=== PATIENT | female | born 2000 | race Caucasian/White ===

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

== ENCOUNTER → 2019-07-25 | Outpatient (CLI) | payer MEDICAID, SELFPAY ==
[2019-07-25 15:58] LABS: T4 Free Direct 0.78 ng/dL (0.76-1.46)
== END | disposition home or self-care (01) ==
LOC: BFHLAB 13:55
PROVIDERS: PCP Family Medicine; Visit Provider Family Medicine
DX: E03.9 Hypothyroidism, unspecified (principal)
CPT/HCPCS: 36415; 84439; 84443

== ENCOUNTER → 2020-01-07 17:36 | Outpatient (CLI) | payer MEDICAID, SELFPAY | PROVIDERS: PCP Family Medicine; Referring Provider Family Medicine; Visit Provider Family Medicine | DX: Z20.828 Contact with and (suspected) exposure to other viral communicable diseases (principal); R05 Cough | CPT/HCPCS: 87635; 94799; U0003 ==

== ENCOUNTER → 2020-02-12 | Outpatient (CLI) | payer MEDICAID, SELFPAY ==
[2020-02-12 12:28] LABS: Absolute Lymphocyte Count 3.59 X10^3/uL (0.83-4.51); Absolute Neutrophil Count 6.9 X10^3/uL (2.0-7.7); Basophil# 0.03 X10^3/uL; Basophil% 0.3 % (0-1); Eosinophil# 0.16 X10^3/uL; Eosinophils% 1.4 % (0-5); Hematocrit 35.8 % (37-47); Hemoglobin 10.6 g/dL (12.0-15.0); Lymphocyte # 3.59 X10^3/ul (4.0); Mean Corp Hgb Conc 29.6 g/dL (32-36); Mean Corpuscular Hgb 22.9 pg (27.0-32.0); Mean Corpuscular Volume 77.5 fL (81-99); Mean Platelet Vol. 10.4 fl (6.2-12.0); Monocyte# 0.49 X10^3/uL; Monocyte% 4.4 % (0-10); NRBC Flagged by Analyzer 0 % (0-5); Neutrophil # 6.89 X10^3/uL (2.7-7.7); Neutrophil % 61.5 % (47-70); Platelet Count 419 K/mm3 (150-450); RBC Distribution Width CV 15.9 % (11.6-14.6); RBC Distribution Width SD 43.9 fl (35.1-43.9); Red Blood Count 4.62 M/mm3 (4.2-5.4); White Blood Count 11.2 K/mm3 (4.4-11.0)
[2020-02-12 13:43] LABS: ALB/GLOB Ratio 0.7 RATIO (0.9-2.4); AST(SGOT) 25 U/L (15-37); Alanine Aminotransfer ALT/SGPT 37 U/L (13-56); Albumin, Serum 2.8 g/dL (3.2-5.0); Alkaline Phosphatase 112 U/L (45-117); Anion Gap 6 (5-15); BUN 8 mg/dL (7-18); BUN/Creat Ratio 13.2 RATIO (10-20); Calcium,Total 8.9 mg/dL (8.5-10.1); Chloride 105 mmol/L (98-107); Creatinine, Serum 0.61 mg/dL (0.55-1.02); EST Glomerular Filtration Rate 133 mL/min (>60); Est Glom Filt Rate - Afr Amer 161 mL/min (>60); Free T3 3.4 pg/mL (2.18-3.98); Globulin 4.2 g/dL (2.2-4.2); Glucose 80 mg/dL (74-106); Potassium 3.8 mmol/L (3.5-5.1); Sodium Level 140 mmol/L (136-145); Thyroid Stim Hormone (TSH) 3.87 uIU/mL (0.358-3.74)
== END | disposition home or self-care (01) ==
LOC: LAB.FUTURE 09:30
PROVIDERS: PCP Family Medicine; Visit Provider Family Medicine
DX: E03.8 Other specified hypothyroidism (principal); E06.3 Autoimmune thyroiditis; D64.9 Anemia, unspecified; Z51.81 Encounter for therapeutic drug level monitoring
CPT/HCPCS: 36415; 80053; 84439; 84443; 84481; 85025

== ENCOUNTER 2020-09-03 22:31 | Emergency (ER) | payer MEDICAID, SELFPAY ==
[2020-09-03 22:31] VITALS: BP 186/112; PULSE 100; RESP 16; TEMP 36.4; O2SAT 97; BMI 64.7
--- NOTE | 2020-09-03 22:42 | CT_ITS ---
STUDY: CT BRAIN WITHOUT CONTRAST REASON FOR EXAM: Female, 20 years old. Pain RADIATION DOSAGE (If Supplied By Facility): CTDIvol = ( 44.99 ) mGy, DLP = ( 812.98 ) mGycm TECHNIQUE: Transaxial CT imaging of the brain was performed without administration of intravenous contrast material. Individualized dose optimization techniques were used for this CT. COMPARISON: No relevant priors. FINDINGS: Normal soft tissue structures. Normal calvarium. Normal size ventricles and extra-axial spaces for the patient''s age. Normal white matter tracts of the cerebral hemispheres. Normal basal ganglia and thalami. Normal brainstem. Normal cerebellum. There is no intracranial hemorrhage. There are no findings of an acute ischemic infarction. Normal visualized paranasal sinuses. CT/Brain/Head without Contrast IMPRESSION: Normal unenhanced CT scan of the brain. Electronically Signed: Daren Salguero DO at 23:20 EDT Tel , Service support ,
--- NOTE | 2020-09-03 22:42 | ED.VIS.GEN ---
History of Present Illness Chief Complaint: Headache Informant: Patient Narrative: Stated she woke up with a migraine headache right sided throbbing aching with photophobia and nausea. She has getting migraines twice a week for the last 2 and half months. She is unsure why they have come on. She has tried Fioricet today given to her by her family doctor with minimal relief. They had been helping in the past. No fevers or chills. No neck pain. No visual difficulties. Severity is moderate. Past Medical History - Allergies and Home Meds Allergies/Adverse Reactions: Allergies No Known Allergies Allergy (Verified 09/03/20 22:32) Primary Care Physician: Vivi Wick DO [Primary Care Provider] - Prior records reviewed: Yes Past Medical History: - - migraine headache Surgical History: tonsillectomy Lives: With Family Smoking Status: Never smoker Alcohol: None Drugs: None Review of Systems General: Denies: Chills, Fever, Sweats Eyes: Denies: Visual changes - bilaterally, Diplopia ENT: Denies: Rhinorrhea, Sore throat Cardiovascular: Denies: Chest pain, Palpitations Respiratory: Denies: Dyspnea, Cough, Dyspnea on exertion Gastrointestinal: Denies: Abdominal pain, Nausea, Vomiting, Diarrhea, Melena, Hematochezia Genitourinary: Denies: Dysuria, Hematuria, Frequency Musculoskeletal: Denies: Back pain, Extremity Pain Skin: Denies: Rash, Wounds Neurological: Reports: Headache. Denies: Weakness, Numbness Physical Exam Vital Signs/Narrative: Vital Signs Temp Pulse Resp BP Pulse Ox 09/03/20 22:31 97.6 F L 100 16 186/112 H 97 General: Well nourished, Well developed, No Acute Distress Head: Normocephalic, Atraumatic Eyes: Perrl, EOMI ENT: Moist mucous membranes, No rhinorrhea Neck: Supple, Nontender Cardiovascular: Regular rate, Regular rhythm, No murmurs Respiratory: No distress, CTA bilaterally, Chest nontender Abdomen: Soft, Nontender, Nondistended, Normal bowel sounds Back: Nontender, Normal Inspection Extremities: Nontender, No edema Skin: Normal color, No rash Neurological: Alert, Oriented x3, Cranial nerves II-XII grossly intact, Normal Strength, Normal Sensation Psychological: Normal affect, Normal Mood Diagnostic/Tx/Re-eval - Medical Decision Making Patient resting comfortably. CT of the head will be obtained. Given Toradol Compazine Benadryl for her migraine headache. CT head shows nothing acute. No masses. On reevaluation headache is resolved. She will follow-up as an outpatient with her family doctor and may need a neurology referral. She will continue her outpatient medications for her migraines ED Disposition - Plan for ED Patient: Disposition: Home or Assisted Living Diagnosis: Migraine headache Instructions: ED, Migraine (Classical) Referrals: Vivi Wick DO [Primary Care Provider] -
[2020-09-03] MEDS: Ketorolac 15 MG/ML Vial IV (23:06)
[2020-09-03] MEDS: 0.9% Normal Saline 1,000 ML 999 ML IV (23:06)
[2020-09-03] MEDS: DiphenhydrAMINE 50 MG/ML Syringe 25 MG IV (23:06)
[2020-09-03] MEDS: proCHLORPERazine 10 MG/2 ML Vial IV (23:06)
--- NOTE | 2020-09-03 23:47 | ED.RN ---
Patient states she no longer has pain and would like to go home as her dad is in the parking lot and wants to head home
[2020-09-03 23:50] VITALS: BP 134/80; PULSE 80; RESP 18; TEMP 36.6; O2SAT 98
== END 2020-09-03 23:51 | disposition home or self-care (01) ==
PROVIDERS: Emergency Provider Emergency Medicine; PCP Family Medicine
DX: G43.909 Migraine, unspecified, not intractable, without status migrainosus (principal)
CPT/HCPCS: 70450; 96361; 96374; 96375; 99283; J7030; A4216

== ENCOUNTER → 2020-12-20 13:06 | Outpatient (CLI) | payer MEDICAID, SELFPAY ==
[2020-11-04 11:02] VITALS: BMI 62.9
--- NOTE | 2020-12-20 13:07 | MRI_ITS ---
STUDY: MRI BRAIN WITH AND WITHOUT CONTRAST REASON FOR EXAM: Female, 20 years old. Migraine Headaches, increased frequency TECHNIQUE: Standardized multiplanar fat and water weighted pulse sequences were obtained. IV Yes YES was administered for the contrast portion of the examination. COMPARISON: CT of the brain 09/03/2020 FINDINGS: Mild ventricular asymmetry likely normal variant.. There is a solitary nonspecific white matter lesion in the left parietal lobe without mass effect or restricted diffusion which in isolation is of uncertain clinical significance Normal bilateral basal ganglia. Normal thalami. There is no extra-axial fluid accumulation. Normal flow voids within the major intracranial circulation suggesting patency by spin echo criteria. Normal venous enhancement. There is no enhancing intra-axial or extra-axial abnormality. Normal sella turcica, pituitary gland, infundibular stalk, optic chiasm and hypothalamus. Normal tectal plate and pineal gland. Normal midbrain, sotero and medulla. Normal cerebellum. Normal basal cisterns. Normal bilateral temporal bones. Normal bilateral internal auditory canals. No demonstrated orbital abnormality, within the constraints of a routine brain study. Small mucous retention cyst in the right maxillary sinus.. Normal calvarium and skull base. Normal visualized soft tissue structures. Normal visualized upper cervical spine. MRI/Brain W/WO Contrast IMPRESSION: Minimal nonspecific white matter changes. No evidence for significant white matter disease or evidence for acute infarct. Otherwise normal study of the brain with and without contrast. Mild right maxillary sinus disease likely chronic Electronically Signed: George Allen MD at 16:31 EDT , Service support ,
== END ==
PROVIDERS: PCP Family Medicine; Referring Provider Psychiatry & Neurology Neurology; Visit Provider Psychiatry & Neurology Neurology
DX: G43.009 Migraine without aura, not intractable, without status migrainosus (principal)
CPT/HCPCS: 70553; A9575

== ENCOUNTER → 2021-02-23 | Outpatient (CLI) | payer MEDICAID, SELFPAY | END | disposition home or self-care (01) | LOC: LABSPEC 02-24 07:24 | PROVIDERS: PCP Family Medicine; Visit Provider Family Medicine | DX: Z20.822 Contact with and (suspected) exposure to COVID-19 (principal) | CPT/HCPCS: 87635; U0005; U0003 ==

== ENCOUNTER → 2021-10-24 | Outpatient (CLI) | payer MEDICAID, SELFPAY ==
--- NOTE | 2021-10-24 12:56 | US_ITS ---
STUDY: ULTRASOUND OF THE FEMALE PELVIS - COMPLETE REASON FOR EXAM: Female, 21 years old. AUB TECHNIQUE: Endovaginal. Transvaginal US was obtained to better visualized the ovaries. COMPARISON: None. FINDINGS: The uterus is anteverted and is in a midline position. The uterus measures 8.4 x 5.5 cm. Normal uterine cervix. The endometrium measures 5 mm in thickness, and is hyperechoic. There is no demonstrated endometrial mass. There is no demonstrated myometrial mass. I.U.D. - The patient does not have an I.U.D. The right ovary is visualized. The right ovary measures 2.5 cm. There is no right ovarian cyst or ovarian mass. There is no visualized right adnexal mass or complex lesion. There is normal arterial and normal venous vascularity. The left ovary is visualized. The left ovary measures 2.4 cm. There is no left ovarian cyst or ovarian mass. There is no visualized left adnexal mass or complex lesion. There is normal arterial and normal venous vascularity. There is no fluid in the cul-de-sac. Urinary bladder volume of 221 cc. US/Transvaginal Non- IMPRESSION: There are no acute findings. Electronically Signed: Bryce Centeno MD at 20:41 EDT ,
--- NOTE | 2021-10-24 12:56 | US_ITS ---
STUDY: ULTRASOUND OF THE FEMALE PELVIS - COMPLETE REASON FOR EXAM: Female, 21 years old. AUB TECHNIQUE: Endovaginal. Transvaginal US was obtained to better visualized the ovaries. COMPARISON: None. FINDINGS: The uterus is anteverted and is in a midline position. The uterus measures 8.4 x 5.5 cm. Normal uterine cervix. The endometrium measures 5 mm in thickness, and is hyperechoic. There is no demonstrated endometrial mass. There is no demonstrated myometrial mass. I.U.D. - The patient does not have an I.U.D. The right ovary is visualized. The right ovary measures 2.5 cm. There is no right ovarian cyst or ovarian mass. There is no visualized right adnexal mass or complex lesion. There is normal arterial and normal venous vascularity. The left ovary is visualized. The left ovary measures 2.4 cm. There is no left ovarian cyst or ovarian mass. There is no visualized left adnexal mass or complex lesion. There is normal arterial and normal venous vascularity. There is no fluid in the cul-de-sac. Urinary bladder volume of 221 cc. US/Pelvic (Non ) IMPRESSION: There are no acute findings. Electronically Signed: Bryce Centeno MD at 20:41 EDT ,
== END | disposition home or self-care (01) ==
LOC: US 12:55
PROVIDERS: PCP Family Medicine; Referring Provider Family Medicine; Visit Provider Family Medicine
DX: N92.0 Excessive and frequent menstruation with regular cycle (principal)
CPT/HCPCS: 76830; 76856

== ENCOUNTER → 2021-12-21 | Outpatient (CLI) | payer MEDICAID, SELFPAY ==
[2021-12-21 14:46] LABS: Absolute Lymphocyte Count 4.37 X10^3/uL (0.83-4.51); Absolute Neutrophil Count 8.7 X10^3/uL (2.0-7.7); Basophil# 0.02 X10^3/uL; Basophil% 0.1 % (0-1); Eosinophil# 0.21 X10^3/uL; Eosinophils% 1.5 % (0-5); Hematocrit 36.9 % (37-47); Lymphocyte # 4.37 X10^3/ul (0.83-4.51); Lymphocyte % 31.6 % (19-41); Mean Corp Hgb Conc 29.8 g/dL (32-36); Mean Corpuscular Volume 77.2 fL (81-99); Mean Platelet Vol. 9.9 fl (6.2-12.0); Monocyte# 0.53 X10^3/uL; Monocyte% 3.8 % (0-10); NRBC Flagged by Analyzer 0 % (0-5); Neutrophil # 8.67 X10^3/uL (2.7-7.7); Neutrophil % 62.6 % (47-70); POSITIVE MORPHOLOGY YES; Platelet Count 548 K/mm3 (150-450); RBC Distribution Width CV 15.1 % (11.6-14.6); RBC Distribution Width SD 41.2 fl (35.1-43.9); Red Blood Count 4.78 M/mm3 (4.2-5.4); White Blood Count 13.9 K/mm3 (4.4-11.0)
[2021-12-21 14:49] LABS: Differential Indicated SCAN CRITERIA MET
[2021-12-21 15:10] LABS: Differential Comment SCANNED; Reactive Lymphocyte 1+
[2021-12-23 17:07] LABS: von Willebrand Factor Activity 95 % (50-200)
[2021-12-23 22:06] LABS: Factor VIII Activity 247 % (56-140); VWD Studies Interp Report Note (.); von Willebrand Factor (vWF) Ag 202 % (50-200)
== END | disposition home or self-care (01) ==
LOC: PAVLAB 14:26
PROVIDERS: PCP Family Medicine; Referring Provider Nurse Practitioner Women's Health; Visit Provider Nurse Practitioner Women's Health
DX: N92.0 Excessive and frequent menstruation with regular cycle (principal)
CPT/HCPCS: 36415; 85025; 85240; 85245; 85246

== ENCOUNTER 2022-02-28 11:35 | Day surgery (SDC) | payer MEDICAID, SELFPAY ==
[2022-02-28] VITALS (7 sets, daily range): BP systolic 150–171; BP diastolic 70–88; PULSE 71–110; RESP 16; TEMP 36.4–36.9; O2SAT 92–98; BMI 58.4
--- NOTE | 2022-02-28 11:17 | PCM.HP.BLA ---
History and Physical Date of Admission: 02/28/22 Intake Vital Signs ? 01/18/2211:57 01/18/2211:58 Height 5 ft 1.5 in 5 ft 1.8 in Weight: 315 lb ? BMI 58.5 ? BP 148/73 H ? Intake Visit Reasons:?EMB/IUD insertion under anesth Chief Complaint: EMB Environmental Emergencies Planner Required: No Is patient in pain?: No Allergies amoxicillin [From Augmentin] Adverse Reaction (Intermediate, Verified 12/21/21 13:59) Nauseaclavulanic acid [From Augmentin] Adverse Reaction (Intermediate, Verified 12/21/21 13:59) Nausea Medications mrpivinumb-btkaanstlmliy-bnoboiti 50 mg-325 mg-40 mg capsule 1 tablet PO 4X/DAY PRN PRN MIGRAINE 09/03/20 [History Confirmed 01/18/22] omeprazole 40 mg capsule,delayed release 40 mg PO DAILY 09/03/20 [History Confirmed 01/18/22] atenolol 50 mg tablet 50 mg PO DAILY 04/05/21 [History Confirmed 01/18/22] buspirone 5 mg tablet 5 mg PO BID 09/05/21 [History Confirmed 01/18/22] fluoxetine 40 mg capsule 40 mg PO DAILY 09/05/21 [History Confirmed 01/18/22] sumatriptan succinate 100 mg tablet See Rx Instructions .Route .COMPLEX #9 tabs 09/05/21 [Rx Confirmed 01/18/22] topiramate 50 mg tablet 50 mg PO BID #60 tabs 09/05/21 [Rx Confirmed 01/18/22] aripiprazole 5 mg tablet (Abilify) 5 mg PO DAILY 12/21/21 [History Confirmed 01/18/22] ferrous sulfate 325 mg (65 mg iron) tablet 325 mg PO DAILY 12/21/21 [History Confirmed 01/18/22] furosemide 20 mg tablet 20 mg PO DAILY PRN 12/21/21 [History Confirmed 01/18/22] levothyroxine 150 mcg capsule 150 mcg PO DAILY 12/21/21 [History Confirmed 01/18/22] norgestimate 0.25 mg-ethinyl estradiol 35 mcg tablet (Nymyo) 1 tab PO DAILY 12/21/21 [History Confirmed 01/18/22] sodium chloride 0.65 % nasal spray aerosol (Saline Nasal) 1 spray intranasal ONCE 12/21/21 [History Confirmed 01/18/22] tizanidine 2 mg capsule 2 mg PO Q8H PRN 12/21/21 [History Confirmed 01/18/22] topiramate 50 mg tablet 50 mg PO DAILY 12/21/21 [History Confirmed 01/18/22] megestrol 20 mg tablet 20 mg PO DAILY #30 tabs 01/18/22 [Rx Confirmed 01/18/22] Is last menstrual period known: No Post menopausal: No Patient : No : No PFSH Medical History? Anxiety Valentin's thyroiditis History of childhood obesity HTN (hypertension) Migraine headache without aura Surgical History? Hx of tonsillectomy Family History? Mother Hypothyroidism AnemiaFather Anxiety Hypertension Fibromyalgia Rheumatoid arthritis Social History? household members:? family current occupational status:? student current occupation:? [employer] Smoking Status:? Never smoker Electronic Cigarette Use:? not used second hand exposure:? Yes (Parents smoked in the house) alcohol intake:? current alcohol intake frequency: holidays/special occasions only substance use type:? does not use what type of physical activity do you participate in:? none seatbelt use:? always do you feel safe at home:? Yes additional social history:? single HPI EMB/IUD insertion under anesth Details: KELLE STEWART is a 21 year old who presents for discussion about abnormal bleeding and abnormal blood levels of Factor VIII. She was seen by Honey Rodriguez CNP and was sent to myself for opinion on emb and placement of IUD. Kelle is currently using a combination ocp to control her bleeding. She is obese, hypothyroid, hypertensive, and suffers with severe anxiety and depression. She denies history of blood clots in the past. A recent blood test showed elevation and the VWD antigen, but normal VWD level, and elevated Factor VIII level. platelets were also noted to be elevated. Pregancy History ? ? ? 0 ? Elective abortions ? Hx Para ? Spontaneous abortions ? Hx # Term Pregnancies ? Ectopic pregnancies ? Hx # Pregnancies ? Multiple births ? # of living children ? ROS Const ROS Unobtainable: All systems reviewed & are unremarkable except as noted in H Resp Resp: Reports system reviewed and no additional complaints, except as documented; Denies cough GI GI: Reports as per HPI Psych Psych: Reports system reviewed and no additional complaints, except as documented Exam Const General: cooperative, healthy appearing, comfortable and no acute distress Resp Effort & Inspection: normal respiratory effort Skin General: no rashes or lesions noted Psych Appearance: grossly normal Speech and Movement: speech and movement normal Coding Level of Care Code Off vis,est,level 4 Diagnoses Elevated factor VIII level? R79.1 Menorrhagia with regular cycle? N92.0 Obesity? E66.01; Z68.43 ? ? ? Obesity type: due to excess calories ? ? ? Obesity classification: adult class 3 (BMI >= 40) ? ? ? Serious obesity comorbidity presence: with serious comorbidity ? ? ? Body mass index: BMI 50.0-59.9 Assessment and Plan Assessment and Plan (1) Elevated factor VIII level: ?Status:?Acute ?Comment: consulting hemonc (2) Menorrhagia with regular cycle: ?Status:?Acute ?Comment: Normal US([id number]). Failed apri and sprintec.labs pending (3) Obesity: ?Status:?Acute ?Qualifiers: ?Obesity type:?due to excess calories??Obesity classification:?adult class 3 (BMI >= 40)??Serious obesity comorbidity presence:?with serious comorbidity??Body mass index:?BMI 50.0-59.9? Qualified Code(s):?E66.01 - Morbid (severe) obesity due to excess calories; Z68.43 - Body mass index [BMI] 50.0-59.9, adult ? ? ? Medications: New megestrol 20 mg? PO DAILY 30 tabs 0RF ? ? Plan The patient agrees to placement of a progesterone IUD to avoid systemic absorption of progesterone and to avoid estrogen that may be causing her factor VIII level to be elevated or could possibly cause future blood clots. She would like to proceed with placement in the operating room under sedation. I would also recommend pap and possible endometrial biopsy at the same time since estrogen may be the cause of the elevated factor VIII, the level may need to be repeated when taken off the medication, however I would like for her to get a second opinion from a citrus fruit colorer to help rule out hereditary elevation in factor VIII.? Plan for hysteroscopy dilation and curettage, placement of mirena IUD Discussed risks of surgery including risks of anesthesia, bleeding, infection, uterine perforation, possible laparoscopy if this happens due to risk of injury to bowel, bladder or vasculature. UPDATE- I have seen the patient and performed any clinically relevant updates to the history and physical exam. Mitzi Villareal, DO
[2022-02-28 12:10] LABS: Internal QC Validated? YES +Cl - CLEAR BKGD; Pregnancy, Urine Negative Negative
[2022-02-28] MEDS: Lactated Ringers 1,000 ML 100 ML IV (12:21)
[2022-02-28] MEDS: Lidocaine 1% (20 ml mdv) 20 ML Vial (12:35)
--- NOTE | 2022-02-28 13:10 | EMB_PTH ---
PATIENT: BEN STEWART LOC: [facility] – [place] U#:[id number] AGE/SX: ROOM: RE02/28/[address]: Dr. Mitzi Villareal DO : 2000 BED: DIS: 02/28/2022 SPEC #: [id number] RECD: 02/28/22 14:13 STATUS: KHOI REDDY #: [id number] NELA: 02/28/22 13:[address]: Mitzi Villareal DEPT: SURGICAL PATHOLOGY RECD BY: Norman Warner ENTERED: 03/01/22 08:01 SP TYPE: ENDOM BX/C OTHR DR: Dr. Vivi Wick DO Tissues: Endometrium, NOS Procedures: Surgery Specimen Level IV HEADER OPERATION: Hysteroscopy, dilation and curettage, IUD insertion, Pap test PRE-OP DIAGNOSIS: Elevated factor VIII level, menorrhagia TISSUE SUBMITTED: Endometrial curettings MICROSCOPIC DIAGNOSIS Endometrial curettings: Secretory endometrium. JULIAN:bonilla 03/02/2022 MICROSCOPIC DESCRIPTION Slides are reviewed. GROSS DESCRIPTION Received in fixative is one container labeled with the patient's name and designated endometrial curettings. The specimen consists of multiple irregular fragments of morales-pink to hemorrhagic mucoid tissue that in aggregate measure 1.5 x 1 x 0.2 cm. The specimen is totally submitted in one cassette. / JULIAN:bonilla 03/01/2022 TC:4 CPT: 78050
--- NOTE | 2022-02-28 13:48 | PCM.OP.BLANK ---
Operative Report Date of Procedure: 02/28/22 preoperative diagnosis: abnormal uterine bleeding, unable to tolerate in office exam, morbid obesity Postoperative diagnosis:abnormal uterine bleeding, unable to tolerate in office exam, morbid obesity Surgeon: Dr. Mitzi Villareal, Procedure: hysteroscopy dilation and curettage, placement of Liletta intrauterine device, pap under anesthesia EBL: minimal urine output: 10cc findings: atrophic appearing uterus specimens removed: endometrial curettings Details of the procedure: Patient was prepped and draped in a normal sterile fashion under MAC anesthesia. A weighted speculum was placed in the vagina and a pap was collected. The anterior lip of the cervix was grasped with a single-tooth tenaculum. A paracervical block was placed with 1% lidocaine. Cervix was progressively dilated to allow passage of a 5 mm hysteroscope. The lining was fully visualized and noted to have an atrophic appearing lining . Uterine sounded to 10 cm. Curettage was performed and specimen was sent to pathology. The liletta IUD was inserted into the uterus and the strings were trimmed 2 cm from the cervix. All instruments were removed from the vagina and excellent hemostasis was noted. Patient was awoken and taken to recovery in stable condition. Multi Select Codes Urinary/Genital Urinary/Genital CPT Codes: 77812 Hysteroscopy,EMC, Polypectomy and Other Procedure See Report (pap and placement of intrauterine device )
--- NOTE | 2022-02-28 13:52 | DCINST_ITS ---
Discharge Instructions Diet Discharge Diet: No restrictions Activity Discharge Activity: Return to Normal Activity, May Shower and May Take a Tub Bath (after 1 week) May resume sexual activity in: 1-2 weeks Weight Bearing Status: Weight bearing as tolerated Lifting Restrictions: none Dressing / Incision Call your doctor if you observe: Fever of 101 or Higher, Using more than 1 pad per hour, Shortness of breath and Uncontrolled pain Follow Up Care Please Follow Up With: Mitzi Villareal DO When: Call [phone] to schedule appointment. Test Results: Test results from this visit will be discussed in further detail at your follow- up appointment, if applicable. Discharge Plan Admission Primary Reason for Your Visit: dilation and curettage, placement of Intrauterine device Attending Provider: Mitzi Villareal Primary Care Provider: Vivi Wick Discharge Orders/Prescriptions Prescriptions: New ibuprofen 800 mg tablet 800 mg PO Q8H PRN (Reason: pain) 7 Days Qty: 30 0RF Continued atenolol 50 mg tablet 50 mg PO DAILY fluoxetine 40 mg capsule 40 mg PO DAILY aripiprazole [Abilify] 5 mg tablet 5 mg PO BID ferrous sulfate 325 mg (65 mg iron) tablet 325 mg PO DAILY furosemide 20 mg tablet 20 mg PO DAILY PRN (Reason: WATER RETENTION) levothyroxine 150 mcg capsule 150 mcg PO DAILY topiramate 50 mg tablet 50 mg PO DAILY tizanidine 2 mg capsule 2 mg PO Q8H PRN (Reason: Spasms) Saline Nasal 0.65 % aerosol,spray 1 spray intranasal PRN PRN (Reason: Nasal Congestion) mbzzsdwdfo-mfymdzkujjxml-xzjn 1 EACH capsule 1 tablet PO 4X/DAY PRN PRN (Reason: MIGRAINE) omeprazole 40 MG capsule,delayed release(DR/EC) 40 mg PO DAILY buspirone 5 mg tablet 5 mg PO BID sumatriptan succinate 100 mg tablet 100 mg PO PRN PRN (Reason: Migraine Headache) Discontinued megestrol 20 mg tablet 20 mg PO DAILY Qty: 30 0RF Referrals / Follow Up: Vivi Wick DO [Primary Care Provider] - Disposition Disposition (needs filled in before D/C Order can be placed): Home, Self Care
[2022-02-28] MEDS: HYDROcodone Bitartrate/Apap 5/325 Tablet PO (14:42)
== END 2022-02-28 14:51 | disposition home or self-care (01) ==
LOC: SDC 11:35 → AC 11:36
PROVIDERS: PCP Family Medicine; Referring Provider Obstetrics & Gynecology; Visit Provider Obstetrics & Gynecology
PROC: 0UDB8ZZ Extraction of Endometrium, Via Natural or Artificial Opening Endoscopic (ICD-10-PCS; CPT 58558; principal; 2022-02-28 13:00)
DX: N93.9 Abnormal uterine and vaginal bleeding, unspecified (principal); D66 Hereditary factor VIII deficiency; Z68.43 Body mass index [BMI] 50.0-59.9, adult; E66.01 Morbid (severe) obesity due to excess calories; Z30.430 Encounter for insertion of intrauterine contraceptive device; N85.8 Other specified noninflammatory disorders of uterus; I10 Essential (primary) hypertension; E06.3 Autoimmune thyroiditis; F32.A Depression, unspecified; F41.9 Anxiety disorder, unspecified; Z79.899 Other long term (current) drug therapy; D64.9 Anemia, unspecified; K21.9 Gastro-esophageal reflux disease without esophagitis
CPT/HCPCS: 58558; 58300; 81025; 87491; 87591; 88175; 88305; J7120; G0145

== ENCOUNTER → 2022-04-24 | Outpatient (CLI) | payer MEDICAID, SELFPAY ==
--- NOTE | 2022-04-24 09:46 | US_ITS ---
INDICATION: lost IUD strings EXAMINATION: Ultrasound US Transvaginal Non-OB TECHNIQUE: Transvaginal (for optimal evaluation of the adnexa) pelvic ultrasound was performed. Grayscale, spectral waveform, and color flow Doppler evaluation of the adnexa. COMPARISON: Pelvic ultrasound from 10/24/2021 FINDINGS: UTERUS: Anteverted. The uterus measures 9.1 x 4.9 x 4.6 cm. There is no uterine mass. The endometrial stripe measures 7 mm in AP diameter which is within normal limits. The intrauterine device appears to be in appropriate position in the fundal endometrium. The IUD strings are not visualized. RIGHT OVARY: Not visualized. LEFT OVARY: Not visualized. FREE FLUID: None. US/Transvaginal Non- IMPRESSION: Appropriate positioning of the IUD in the fundal endometrium. However, the IUD strings are not visualized on ultrasound. Electronically Signed: Derrell Laura, at 11:23 EST ,
== END | disposition home or self-care (01) ==
LOC: US 09:46
PROVIDERS: PCP Family Medicine; Referring Provider Obstetrics & Gynecology; Visit Provider Obstetrics & Gynecology
DX: T83.32XA Displacement of intrauterine contraceptive device, initial encounter (principal); Z97.5 Presence of (intrauterine) contraceptive device
CPT/HCPCS: 76830

== ENCOUNTER → 2022-06-22 | Outpatient (CLI) | payer MEDICAID, SELFPAY | END | disposition home or self-care (01) | PROVIDERS: PCP Family Medicine; Visit Provider Family Medicine | DX: Z02.83 Encounter for blood-alcohol and blood-drug test (principal) | CPT/HCPCS: 82570 ==

== ENCOUNTER → 2022-10-16 | Outpatient (CLI) | payer MEDICAID, SELFPAY ==
[2022-10-16 18:32] LABS: Free T3 2.8 pg/mL (2.18-3.98); T4 Free Direct 0.87 ng/dL (0.76-1.46); Thyroid Stim Hormone (TSH) 8.57 uIU/mL (0.358-3.74)
== END | disposition home or self-care (01) ==
LOC: BFHLAB 16:16
PROVIDERS: PCP Family Medicine; Referring Provider Family Medicine; Visit Provider Family Medicine
DX: E03.9 Hypothyroidism, unspecified (principal)
CPT/HCPCS: 36415; 84439; 84443; 84481

== ENCOUNTER → 2022-12-11 | Outpatient (CLI) | payer MEDICAID, SELFPAY ==
[2022-12-11 15:35] LABS: Absolute Lymphocyte Count 4.08 X10^3/uL (0.83-4.51); Absolute Neutrophil Count 7.9 X10^3/uL (2.0-7.7); Basophil# 0.04 X10^3/uL; Basophil% 0.3 % (0-1); Eosinophil# 0.26 X10^3/uL; Hematocrit 36.9 % (37-47); Hemoglobin 11.3 g/dL (12.0-15.0); Lymphocyte # 4.08 X10^3/ul (0.83-4.51); Lymphocyte % 31.6 % (19-41); Mean Corp Hgb Conc 30.6 g/dL (32-36); Mean Corpuscular Hgb 24.9 pg (27.0-32.0); Mean Corpuscular Volume 81.5 fL (81-99); Mean Platelet Vol. 10.4 fl (6.2-12.0); Monocyte# 0.61 X10^3/uL; Monocyte% 4.7 % (0-10); NRBC Flagged by Analyzer 0 % (0-5); Neutrophil # 7.87 X10^3/uL (2.7-7.7); Platelet Count 381 K/mm3 (150-450); RBC Distribution Width CV 16.3 % (11.6-14.6); RBC Distribution Width SD 48.5 fl (35.1-43.9); Red Blood Count 4.53 M/mm3 (4.2-5.4); White Blood Count 12.9 K/mm3 (4.4-11.0)
[2022-12-11 16:32] LABS: ALB/GLOB Ratio 0.7 RATIO (0.9-2.4); AST(SGOT) 16 U/L (15-37); Alanine Aminotransfer ALT/SGPT 31 U/L (13-56); Albumin, Serum 2.8 g/dL (3.2-5.0); Alkaline Phosphatase 117 U/L (45-117); Anion Gap 5 (5-15); BUN 9 mg/dL (7-18); BUN/Creat Ratio 14.4 RATIO (10-20); Calcium,Total 8.9 mg/dL (8.5-10.1); Chloride 107 mmol/L (98-107); Creatinine, Serum 0.62 mg/dL (0.55-1.02); EST Glomerular Filtration Rate 126 mL/min (>60); Est Glom Filt Rate - Afr Amer 152 mL/min (>60); Globulin 4.2 g/dL (2.2-4.2); Glucose 71 mg/dL (74-106); Magnesium 2.8 mg/dL (1.6-2.6); Potassium 3.7 mmol/L (3.5-5.1); Sodium Level 139 mmol/L (136-145); T4 Free Direct 0.82 ng/dL (0.76-1.46); Thyroid Stim Hormone (TSH) 9.78 uIU/mL (0.358-3.74)
== END | disposition home or self-care (01) ==
LOC: BFHLAB 13:09
PROVIDERS: PCP Family Medicine; Referring Provider Family Medicine; Visit Provider Family Medicine
DX: E03.9 Hypothyroidism, unspecified (principal); R00.0 Tachycardia, unspecified; Z51.81 Encounter for therapeutic drug level monitoring
CPT/HCPCS: 36415; 80053; 83735; 84439; 84443; 84481; 85025

== ENCOUNTER → 2023-04-16 | Outpatient (CLI) | payer MEDICAID, SELFPAY ==
[2023-04-16 18:41] LABS: T4 Free Direct 0.87 ng/dL (0.76-1.46); Thyroid Stim Hormone (TSH) 5.35 uIU/mL (0.358-3.74)
== END | disposition home or self-care (01) ==
LOC: BFHLAB 16:07
PROVIDERS: PCP Family Medicine; Visit Provider Family Medicine
DX: E03.9 Hypothyroidism, unspecified (principal)
CPT/HCPCS: 36415; 84439; 84443; 84481

== ENCOUNTER → 2024-04-21 | Outpatient (CLI) | payer MEDICAID, SELFPAY ==
[2024-04-21 12:52] LABS: ALB/GLOB Ratio 0.7 RATIO (0.9-2.4); AST(SGOT) 21 U/L (15-37); Alanine Aminotransfer ALT/SGPT 41 U/L (13-56); Albumin, Serum 3.1 g/dL (3.2-5.0); Alkaline Phosphatase 105 U/L (45-117); Anion Gap 3 (5-15); BUN 10 mg/dL (7-18); BUN/Creat Ratio 13.8 RATIO (10-20); Calcium,Total 9.3 mg/dL (8.5-10.1); Chloride 108 mmol/L (98-107); Cholesterol 230 mg/dL (200); Creatinine, Serum 0.72 mg/dL (0.55-1.02); EST Glomerular Filtration Rate 105 mL/min (>60); Est Glom Filt Rate - Afr Amer 127 mL/min (>60); Free T3 2.9 pg/mL (2.18-3.98); Globulin 4.3 g/dL (2.2-4.2); Glucose 119 mg/dL (74-106); High Density Lipoprotein 38 mg/dL; Potassium 3.5 mmol/L (3.5-5.1); Protein, Total 7.4 g/dL (6.4-8.2); Rheumatoid Factor < 10.0 IU/mL (<15); Sodium Level 140 mmol/L (136-145); T4 Free Direct 0.82 ng/dL (0.76-1.46); Triglycerides 181 mg/dL; Very Low Density Lipoprotein 36 mg/dL (5-40)
[2024-04-21 12:53] LABS: Erythrocyte Sedimentation Rate 38 mm/hr (0-30)
[2024-04-21 13:00] LABS: Absolute Lymphocyte Count 3.47 X10^3/uL (0.83-4.51); Absolute Neutrophil Count 6.8 X10^3/uL (2.0-7.7); Basophil# 0.04 X10^3/uL; Basophil% 0.4 % (0-1); Eosinophil# 0.33 X10^3/uL; Hematocrit 41.3 % (37-47); Hemoglobin 12.5 g/dL (12.0-15.0); Lymphocyte # 3.47 X10^3/ul (0.83-4.51); Lymphocyte % 31.5 % (19-41); Mean Corp Hgb Conc 30.3 g/dL (32-36); Mean Corpuscular Hgb 26.3 pg (27.0-32.0); Mean Corpuscular Volume 86.9 fL (81-99); Mean Platelet Vol. 10.5 fl (6.2-12.0); Monocyte# 0.38 X10^3/uL; Monocyte% 3.4 % (0-10); NRBC Flagged by Analyzer 0 % (0-5); Neutrophil # 6.77 X10^3/uL (2.7-7.7); Neutrophil % 61.3 % (47-70); Platelet Count 348 K/mm3 (150-450); RBC Distribution Width CV 14.7 % (11.6-14.6); RBC Distribution Width SD 47.1 fl (35.1-43.9); Red Blood Count 4.75 M/mm3 (4.2-5.4)
[2024-04-21 13:19] LABS: Hemoglobin A1c 5.5 % (3.8-5.6)
[2024-04-22 12:10] LABS: ANTINUCLEAR ANTIBODIES DIRECT Negative (Negative)
[2024-04-30 12:09] LABS: HLA B27 Negative (.)
== END | disposition home or self-care (01) ==
LOC: BFHLAB 10:17
PROVIDERS: PCP Family Medicine; Referring Provider Family Medicine; Visit Provider Family Medicine
DX: E03.8 Other specified hypothyroidism (principal); E06.3 Autoimmune thyroiditis; R73.01 Impaired fasting glucose; E78.5 Hyperlipidemia, unspecified; M25.50 Pain in unspecified joint; M79.10 Myalgia, unspecified site; L40.9 Psoriasis, unspecified; Z51.81 Encounter for therapeutic drug level monitoring
CPT/HCPCS: 86225; 86235 ×5; 36415; 80053; 80061; 81374; 83036; 84439; 84443; 84481; 85025; 85652; 86038; 86140; 86431

== ENCOUNTER → 2025-04-27 | Outpatient (CLI) | payer MEDICAID, SELFPAY ==
[2025-04-27 12:18] LABS: Hematocrit 38.4 % (37-47); Hemoglobin 12.1 g/dL (12.0-15.0); Immature Granulocytes Count 0.060 X10^3/uL (0.0-0.0); Mean Corp Hgb Conc 31.5 g/dL (32-36); Mean Corpuscular Volume 86.3 fL (81-99); Mean Platelet Vol. 10.1 fl (6.2-12.0); NRBC Flagged by Analyzer 0 % (0-5); Platelet Count 340 K/mm3 (150-450); RBC Distribution Width CV 14.6 % (11.6-14.6); RBC Distribution Width SD 46.4 fl (35.1-43.9); Red Blood Count 4.45 M/mm3 (4.2-5.4); White Blood Count 12.8 K/mm3 (4.4-11.0)
[2025-04-27 13:21] LABS: AST(SGOT) 17 U/L (<=31); Alanine Aminotransfer ALT/SGPT 22 U/L (<=34); Albumin, Serum 3.5 g/dL (3.5-5.0); Alkaline Phosphatase 109 U/L (35-104); Anion Gap 12 (5-15); BUN 11 mg/dL (4-19); BUN/Creat Ratio 18.0 RATIO (10-20); Calcium,Total 9.4 mg/dL (7.6-11.0); Carbon Dioxide 25.8 mmol/L (21.0-32.0); Chloride 103 mmol/L (98-108); Free T3 3.1 pg/mL (2.18-3.98); Globulin 3.4 g/dL (2.2-4.2); Glucose 122 mg/dL (70-99); Potassium 3.6 mmol/L (3.3-5.1)
== END | disposition home or self-care (01) ==
LOC: BFHLAB 11:03
PROVIDERS: PCP Family Medicine; Visit Provider Family Medicine
DX: E03.8 Other specified hypothyroidism (principal); E06.3 Autoimmune thyroiditis; R73.01 Impaired fasting glucose; D64.9 Anemia, unspecified; Z51.81 Encounter for therapeutic drug level monitoring
CPT/HCPCS: 36415; 80053; 83036; 84439; 84443; 84481; 85025; 86850; 86900; 86901